=== PATIENT | male | born 1995 | race Caucasian/White ===

== ENCOUNTER 2022-01-21 15:23 | Emergency (ER) | payer MEDICAID, OTHER ==
[~2022-01-21] VITALS: Ht 175.3 cm; Wt 113.6 kg
[~2022-01-21 15:23] MED LIST: LEVE750T10 PO; OXCA600T18 PO
[2022-01-21] MEDS ORDERED: LAMO100 PO ×2 (15:33→17:41)
[2022-01-21 17:51] VITALS: BP 125/66
== END 2022-01-21 18:03 | disposition home or self-care (01) ==
LOC: EMS 15:25
DX: Z76.0 Encounter for issue of repeat prescription (principal)
CPT/HCPCS: 99281; Z7502

== ENCOUNTER 2022-06-13 11:22 | Emergency (ER) | payer OTHER ==
[~2022-06-13] VITALS: Ht 180.3 cm; Wt 113.6 kg
[~2022-06-13 11:22] MED LIST changes: +LAMO100 PO
[2022-06-13 11:34] VITALS: BP 121/72
[2022-06-13] MEDS ORDERED: OXCA600T18 PO (14:04)
== END 2022-06-13 14:10 | disposition home or self-care (01) ==
LOC: EMS 11:25
DX: G40.909 Epilepsy, unspecified, not intractable, without status epilepticus (principal); Z76.0 Encounter for issue of repeat prescription
CPT/HCPCS: 99281; Z7502

== ENCOUNTER 2024-05-19 15:22 | Emergency (ER) | payer OTHER ==
[~2024-05-19] VITALS: Ht 175.3 cm; Wt 113.6 kg
[~2024-05-19 15:22] MED LIST changes: +LAMO-24 PO; -LAMO100 PO
[2024-05-19 15:31] VITALS: BP 127/75; PULSE 86; RESP 16; TEMP 98.2; O2SAT 98
[2024-05-19] MEDS ORDERED: OXCA600T18 PO (18:50)
== END 2024-05-19 19:05 | disposition home or self-care (01) ==
LOC: EMS 15:22
DX: Z76.0 Encounter for issue of repeat prescription (principal); Z79.899 Other long term (current) drug therapy
CPT/HCPCS: 99282; Z7502